=== PATIENT | female | born 1970 | race Caucasian/White ===

== ENCOUNTER 2023-09-27 22:56 | Inpatient (IN) | payer BC, SELFPAY ==
[2023-09-27 14:41] VITALS: BP 121/69; BMI 20.1
[2023-09-27 15:03] LABS: % Basophils 0.5 % (0-2); % Eosinophils 1.5 % (0-6); % Immature Granulocytes 0.4 % (0-0.5); % Lymphocytes 25.9 % (20.5-51.1); % Neutrophils 59.7 % (42.2-75.2); Absolute Eosinophils 0.1 10^3/uL (0-0.7); Absolute Neutrophils 4.7 10^3/uL (1.4-6.5); Hematocrit 42.7 % (37.0-47.0); Hemoglobin 15.2 g/dL (12.0-16.0); Mean Corp Hgb Conc. 35.6 g/dL (33.0-37.0); Mean Corpuscular Hgb 31.5 pg (27.0-31.0); Mean Corpuscular Volume 88.6 fL (81.0-99.0); Mean Platelet Volume 9.4 fL (7.4-10.4); Nucleated Red Blood Cells % 0 %; Platelet Count 214 10^3/uL (130-400); Red Blood Cell Count 4.82 10^6/uL (4.20-5.40); White Blood Cell Count 7.9 10^3/uL (4.8-10.8)
[2023-09-27 15:16] LABS: ALT (SGPT) 18 U/L (0-35); AST (SGOT) 21 U/L (14-36); Albumin 4.8 g/dl (3.5-5.0); Alkaline Phosphatase 80 U/L (38-126); Blood Urea Nitrogen 17 mg/dl (7-17); Calcium 10.1 mg/dl (8.4-10.2); Carbon Dioxide 22 mmol/L (22-30); Chloride 107 mmol/L (98-107); Estimated Creatinine Clearance 76 ml/min; Glucose 72 mg/dl (70-99); Potassium 3.9 mmol/L (3.5-5.1); Sodium 138 mmol/L (135-145); Total Bilirubin 0.9 mg/dl (0.2-1.3); Total Protein 7.9 g/dl (6.3-8.2); Urine Albumin Negative (Neg - Trace); Urine Bilirubin Negative (Negative); Urine Character Clear (Clear); Urine Color Yellow; Urine Glucose Negative (Negative); Urine Ketone 3+ (Negative); Urine Leukocyte Negative (Negative); Urine Nitrite Negative (Negative); Urine Occult Blood Negative (Negative); Urine Specific Gravity 1.015 (<1.030); Urine Urobilinogen Negative (Neg - 1+); eGFR > 60.00
[2023-09-27 17:58] VITALS: BP 123/64
[2023-09-27] MEDS: REGLAN 10 MG IV (18:56)
[2023-09-27] MEDS: TORADOL 30 MG IV (18:56)
[2023-09-27] MEDS: NSS 1000 IV (18:57)
[2023-09-27 19:34] VITALS: BP 121/74
[2023-09-27 20:43] VITALS: BP 123/72
[2023-09-27 21:04] LABS: Erythrocyte Sed Rate 5 mm/hour (0-20)
[2023-09-27] MEDS: SOLU-MEDROL 258 MG IV (21:15)
--- NOTE | 2023-09-27 21:21 | ED.GENMED ---
History of Present Illness
General
Chief Complaint: Fall
Source: patient and family
Exam Limitations: none
Time Seen by Provider: 09/27/23 18:04
Nursing documentation reviewed up to this point in time: agreed with
Travel History
Have you had any contact with someone who has COVID-19?: No
Do you have any symptoms of coronavirus? Fever > 100 degrees, chills, cough, shortness of breath, sore throat, loss of taste or smell, muscle aches, or headache?: No
History of Present Illness
History of Present Illness:
52-year-old female with past history of anxiety, multiple sclerosis follows with neurology for this presenting today with concerns of multiple weeks of worsening ataxia discomfort to her right lower extremity mild headaches and vision changes that
is very typica of her MS l. She has been taking her chronic medications glatiramer. She was treated with outpatient steroids last week with visit today she has had difficulty ambulating secondary to significant ataxia.
Review of Systems
Review of Systems
Allergies reviewed?: Yes
All Other Systems: ROS reviewed and negative except as documented in HPI and ROS
Phy Exam
Physical Exam
Physical Exam:
GENERAL: Alert , in no apparent distress
EYE: pupils equal and reactive
NECK: Supple, no significant adenopathy.
ENT: o/p clr, mmm.
CARDIAC: Regular rate and rhythm .
LUNGS: Clear breath sounds bilaterally, no acute respiratory distress, no wheezes/rales/rhonchi
ABDOMEN: Soft, without focal tenderness, no r/g, no cvat
NEUROLOGICAL: Alert and oriented, no focal neuro deficits 5 out of 5 upper and lower sensation were palpated bilaterally normal finger-nose and [id number].
Patient was stood up to walk she had a somewhat staggering gait
SKIN: Warm and dry, skin intact.
MUSCULOSKELETAL: No edema, well perfused.
PSYCH: Normal and appropriate interaction.
Course
Orders/Labs/Results
Orders:
Orders
09/27/23 14:56
C-Reactive Protein Urgent
Comment: ADD ON
Complete Blood Count/With Diff Urgent
Comprehensive Metabolic Panel Urgent
Erythrocyte Sed Rate Urgent
Comment: ADD ON
Urinalysis Reflex To Culture Urgent
Date Specimen was Collected: 09/27/23
Time Specimen was Collected: 14:46
09/27/23 18:07
EKG [Electrocardiogram (*1)] Urgent
Reason for Study: Vertigo / Dizzy
EKG- Treatment ONCE
09/27/23 18:33
CT Cervical Spine W/o Iv Contr Urgent
Comment:
Reason For Exam: neck pain left arm numkbness
CT Head W/o Iv Contrast Urgent
Comment:
Reason For Exam: fall hit head
09/27/23 18:34
Ketorolac [Toradol] 30 mg IV NOW STA
Metoclopramide [Reglan] 10 mg IV NOW STA
09/27/23 18:35
0.9% Sodium Chloride 1000 ml [Nss] 1,000 ml IV BOLUS
09/27/23 20:27
Add On- LAB Urgent
Tests Added?: esr, crp
09/27/23 20:50
MethylPREDNISolone. [Solu-Medrol] 1,000 mg 0.9% Sodium Chloride 250 ml [Nss] 250 ml IV NOW
Abnormal Lab Results
09/27/23
14:56
MCH 31.5 H pg
(27.0-31.0)
Absolute Monos (auto) 1.0 H 10^3/uL
(0.1-0.6)
Monocytes % 12.0 H %
(1.7-9.3)
Urine Ketones 3+ A
(Negative)
09/27/23 14:56
09/27/23 14:56
Vital Signs
Initial and Last Documented VS:
Initial Vital Signs
Temp Pulse Resp BP Pulse Ox
98.2 F 85 16 121/69 98
09/27/23 14:41 09/27/23 14:41 09/27/23 14:41 09/27/23 14:41 09/27/23 14:41
Last Documented Vital Signs
Temp Pulse Resp BP Pulse Ox
98.2 F 78 18 123/72 99
09/27/23 14:41 09/27/23 20:43 09/27/23 20:43 09/27/23 20:43 09/27/23 20:43
MDM/Problems Addressed
MDM/Problems Addressed:
52-year-old male with a multiple symptoms that she feels is distant with her MS and uses a flare. Outpatient steroids with no relief. Here she had initial vital signs normal in no distress when trying to ambulate she did have some ataxia but
otherwise no specific focal findings. She had some degree of headache was given Reglan with improvement. Given fluids. Did have a fall where she think she may have hit her head and does have some discomfort to her neck CT scan of the head and
neck were performed with no emergent findings. Case discussed with neurology recommending IV steroids and admission for further monitoring. Stable throughout ER stay.
*Critical Care Note
Total Time (30-74mins, 75-104mins- exclusive of procedures): Not Applicable
ED Attending Note
-
Portions of this chart may have been created with voice recognition software.� Occasional wrong word or��sound alike� substitutions may have occurred due to the inherent limitations of voice recognition software.
Discharge Plan
Departure
Patient Disposition: Admit
Date of Disposition: 09/27/23
Time of Disposition: 21:26
Admit to: Med/Surg
Admit to doctor: roseline
Presentation/result/management discussed w/ accepting MD/DO: Hospitalist
Patient with high blood pressure during this ER visit?: No
Condition: Good
Covid-19: Not Applicable
Discharge Problem:
Multiple sclerosis exacerbation
Prescriptions:
No Action
topiramate [Topamax] 100 mg Tablet
150 mg PO BID
glatiramer [Copaxone] 40 mg/mL Syringe
40 mg SC ONCE
Rx Instructions:
takes 3 times a week, had last dose .
diazepam [Valium] 10 mg Tablet
10 mg PO BID PRN (Reason: an)
zolpidem [Ambien] 10 mg Tablet
10 mg PO HS
Referrals:
Stanislav Nino MD [Family Provider] -
Interventions
Interventions:
*Risk Screen - Suicide Last Done: 09/27/23 14:41
*General Assessment Last Done: 09/27/23 17:57
*Neglect/Abuse Screening Last Done: 09/27/23 14:41
ED- Fall Risk Assessment Last Done: 09/27/23 17:59
*ED COVID-19 Vaccine History Last Done: 09/27/23 14:41
ED- Neurological Assessment Last Done: 09/27/23 17:59
ED-Skin Assessment Last Done: 09/27/23 17:59
--- NOTE | 2023-09-27 22:16 | HPS.HSE ---
Family Physician
-
Family Physician: Stanislav Nino
Chief Complaint
-
Weakness, Ataxia
History of Present Illness
Patient is a 52y F with PMH significant for multiple sclerosis who presents to ED complaining of weakness, ataxia, vision changes, etc for the past 2-3 weeks. Patient initially developed R vision changes and paresthesias. Her symptoms have
since progressed to include headache, ataxia and LE weakness. She had a fall yesterday onto her L side when she got out of bed and her legs gave out. Patient states that she spoke with her Neurologist at [place]. Initially she increased her fluid
intake and rest - without improvement in her symptoms.
She was then seen by her PCP and was prescribed PO methylprednisolone 3 tabs daily (? dose). She noted some improvement in her weakness and ataxia; however, she also developed bladder pain and spasms.
She was diagnosed with UTI, steroids were stopped and she was started on Macrobid.
Since that time, her MS symptoms have again increased / recurred.
Medical History
Past Medical History
Past Medical History: Reports Other
Additional Past Medical History:
Multiple Sclerosis
Migraine Headaches
Anxiety / Insomnia
Past Surgical History: Reports Other
Additional Past Surgical History:
x 3
KAYLEY
Cholecystectomy
Bilateral Breast Reduction
Abdominoplasty
Social History
Tobacco: Non-smoker
Alcohol: Occasional
Drug: None
Family History
Family History: Not pertinent
Allergies / Home Medications
Allergies reflects when Allergies were last updated in [facility].
Home Medications with original date entered in [facility]
Allergy/Medication List:
Allergies
Allergy/AdvReac Type Severity Reaction Status Date / Time
Penicillins Allergy Rash Verified 09/27/23 14:38
Home Medications
diazepam 10 mg tablet (Valium) 10 mg PO BID PRN an 09/27/23
glatiramer 40 mg/mL subcutaneous syringe (Copaxone) 40 mg SC ONCE 09/27/23
topiramate 100 mg tablet (Topamax) 150 mg PO BID 09/27/23
zolpidem 10 mg tablet (Ambien) 10 mg PO HS 09/27/23
Review of Systems
-
History Source: Patient
A 12 point ROS was completed and negative except as noted: Yes
Constitutional: Reports Fatigue; Denies Fever or Chills
EENT: Reports Other (Vision changes); Denies Sore Throat
Respiratory: Denies Cough or Trouble Breathing
Cardiac: Denies Chest Pain or Palpitations
Abdomen/GI: Reports Nausea; Denies Abdominal Pain, Vomiting or Diarrhea
: Reports Dysuria, Urgency and Other (Bladder pressure / spasms.); Denies Frequency or Flank Pain
Musculoskeletal: Reports Joint Pain (L shoulder / knee.); Denies Edema
Neurological: Reports Headache, Weakness and Numbness; Denies Dizzy
Psych: Reports Anxiety; Denies Depression
Physical Exam
Vital Signs
Vital Signs
Temp Pulse Resp BP Pulse Ox
98.2 F 78 18 123/72 99
09/27/23 14:41 09/27/23 20:43 09/27/23 20:43 09/27/23 20:43 09/27/23 20:43
Physical Exam
General: Other (52y F in no acute distress.)
HEENT: Moist mucous membranes and PERRLA
Respiratory: Clear; No Wheezes, Rales or Rhonchi
Cardiac: S1/S2 and Regular Rhythm; No Murmur
GI: Soft, Non Tender, Non Distended and Normal Bowel Sounds
Musculoskeletal: No Clubbing, No Cyanosis and No Edema
Neuro: AO x 3 and Other (Mild weakness appreciated in the LLE compared to the R. Pos ataxia / unsteady gait.)
Laboratory Results
-
09/27/23 14:56
02/10/24 14:56
Laboratory Results
Total Bilirubin 0.9 mg/dl (0.2-1.3) 09/27/23 14:56
AST 21 U/L (14-36) 09/27/23 14:56
ALT 18 U/L (0-35) 09/27/23 14:56
Alkaline Phosphatase 80 U/L (38-126) 09/27/23 14:56
Impression/Plan
-
A/P: Patient is a 52y F with PMH significant for MS who presents to ED complaining of 3 weeks of worsening symptoms.
MS Flare
- Admit for further evaluation and treatment.
- Failed supportive care and outpatient course of PO steroids.
- High-dose SoluMedrol at 1000mg daily for now.
- Follow for improvement in symptoms.
- Patient states that - in the past - she has received 3 days of such treatment as the usual 5 days was 'too much'.
- Continue usual outpatient med regimen including Copaxone.
- Neurology evaluation.
- PT / OT evaluations.
- Follow for any new / worsening symptoms.
Migraine Headaches
- Continue Topamax for headaches.
DVT Prophylaxis: Subcut Lovenox
Code Status: Full
[2023-09-27] MEDS: TOPAMAX 150 MG PO (23:26)
[2023-09-27] MEDS: AMBIEN 5 MG PO (23:26)
[2023-09-27 23:30] VITALS: BP 99/58; BMI 20.8
[2023-09-28 00:38] LABS: TSH Reflex To Free T4 0.72 uIU/ml (0.47-4.68)
[2023-09-28 07:09] LABS: Hematocrit 40.1 % (37.0-47.0); Hemoglobin 13.9 g/dL (12.0-16.0); Mean Corp Hgb Conc. 34.7 g/dL (33.0-37.0); Mean Corpuscular Hgb 30.8 pg (27.0-31.0); Mean Corpuscular Volume 88.7 fL (81.0-99.0); Mean Platelet Volume 9.9 fL (7.4-10.4); Platelet Count 202 10^3/uL (130-400); Red Blood Cell Count 4.52 10^6/uL (4.20-5.40); Red Cell Dist. Width 12.7 % (11.5-14.5); White Blood Cell Count 3.6 10^3/uL (4.8-10.8)
[2023-09-28 07:36] LABS: Blood Urea Nitrogen 17 mg/dl (7-17); Calcium 9.6 mg/dl (8.4-10.2); Carbon Dioxide 16 mmol/L (22-30); Chloride 111 mmol/L (98-107); Estimated Creatinine Clearance 79 ml/min; Glucose 126 mg/dl (70-99); Potassium 4.1 mmol/L (3.5-5.1); Sodium 138 mmol/L (135-145); eGFR > 60.00
[2023-09-28 07:40] VITALS: BP 99/64
[2023-09-28] MEDS: TOPAMAX 150 MG PO ×2 (08:01→20:25)
[2023-09-28] MEDS: PROTONIX IV 40 MG IV (08:01)
[2023-09-28] MEDS: NSS (PRESERVATIVE FREE) 10 ML IV (08:06)
--- NOTE | 2023-09-28 11:42 | W.PN.HOSP.TC ---
Today's Communication/Plan
-
Check urinalysis
Assessment / Plan
Assessment / Plan
Gen-AAOx3, NAD
HEENT-NC, AT, anicteric, clear oral mm
Neck-supple
CV-reg, no M, +S1/S2
Lungs-clear B/L
Abd-soft, NT, ND
Ext-no edema
Musculoskeletal-no cyanosis, clubbing
Skin-warm and dry
Neuro-grossly non-focal
Psych-calm, cooperative
Multiple sclerosis flare -continue IV Solu-Medrol. Consult neurology.
Dysuria -patient claims it is from the steroids. Check urinalysis again today. Recently treated with Macrobid.
Migraine headaches -continue Topamax.
Full code
Anticipated Discharge: 24 - 48 hours
Subjective/Interval History
-
Date of Service: September 28, 2023
Patient seen and examined. States her strength is improved. Having urinary symptoms however.
Objective Data
-
Labs:
Laboratory Results
09/28/23
06:20
WBC 3.6 L
Hgb 13.9
Hct 40.1
Plt Count 202
Sodium 138
Potassium 4.1
Chloride 111 H
Carbon Dioxide 16 L
BUN 17
Creatinine 0.8
Glucose 126 H
Calcium 9.6
Vital Signs:
Vital Signs
Temp Pulse Resp BP Pulse Ox
97.6 F 73 14 99/64 98
09/28/23 07:40 09/28/23 07:40 09/28/23 07:40 09/28/23 07:40 09/28/23 07:40
I&O
09/27/23 09/28/23 09/29/23
06:59 06:59 06:59
Intake Total 480 / 480
Balance 480 / 480
Review of Systems
-
History Source: Patient
All other systems: Reviewed and negative
[2023-09-28 12:32] LABS: Urine Albumin 3+ (Neg - Trace); Urine Bilirubin 1+ (Negative); Urine Character Clear (Clear); Urine Color Yellow; Urine Glucose Trace (Negative); Urine Ketone 3+ (Negative); Urine Leukocyte Negative (Negative); Urine Nitrite Negative (Negative); Urine Occult Blood Trace (Negative); Urine Specific Gravity 1.025 (<1.030); Urine Urobilinogen Negative (Neg - 1+)
--- NOTE | 2023-09-28 12:34 | CON.NEURO4 ---
Consultation - Neurology 4
-
CONSULTING PHYSICIAN: Ruby
REFERRING PHYSICIAN: ER
DICTATED BY: Ruby
DATE/TIME OF REQUEST: 09/27/23 in the evening
DATE/TIME OF CONSULTATION: 09/28/23 12pm
Reason for Consultation: ms exacerbation
History of Present Illness:
52-year-old female with a history of MS that she states was diagnosed about 12 years ago after onset of vision loss in her right eye/optic neuritis who actively follows with the [facility] came in for evaluation for gait ataxia. She also has a
history of anxiety. She states that for the past few weeks she has had gait ataxia and she called her PCP who prescribed her oral steroids. This did not seem to be helpful and on Friday she 'got up, fell to the side and hurt her shoulder and arm
on the left, her legs felt wobbly and she felt like she was on a boat.' She was instructed to go to the nearest ER. She currently takes Copaxone. This is the only MS drugs she is ever taken and she denies any missed doses. She also has a history
of neurogenic bladder and states that steroids sometimes seem to cause pain/burning with urination. She follows with Dr. Anthony Link, urologist in [place]. She states that at baseline she has 'an intermittent black spot in the vision in her right
eye and pain with movement of her right eye' as a result of MS. She said she had a 4-day virus around [place] and has never 'felt the same since then.' She says that her last MS flare was 5 or 6 years ago. She says that she has MS lesions in
her brain but not her spinal cord.
Past Medical History:
Multiple Sclerosis
Migraine Headaches
Anxiety / Insomnia
Surgical History:
x 3
KAYLEY
Cholecystectomy
Bilateral Breast Reduction
Abdominoplasty
Family History: no family history of MS, reports strong family history of breast cancer
Social History:
Tobacco: Non-smoker
Alcohol: Occasional
Drug: None
Disabled due to MS
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
Allergies
Penicillins Allergy (Verified 09/27/23 14:38)
Rash
Home Medications
Medication Instructions Recorded
diazepam 10 mg tablet (Valium) 10 mg PO BID PRN ANXIETY 09/27/23
glatiramer 40 mg/mL subcutaneous 40 mg SC ONCE Neurological 09/27/23
syringe (Copaxone) Condition
topiramate 100 mg tablet (Topamax) 150 mg PO BID Neurological 09/27/23
Condition
zolpidem 10 mg tablet (Ambien) 10 mg PO HS Sleep 09/27/23
Review of Symptoms:
Patient denies any fever, headache, chest pain, shortness of breath, GI ymptoms.
�Per the HPI.�All systems are reviewed negative except above.
Vital Signs
Temp Pulse Resp BP Pulse Ox
97.6 F 73 14 99/64 98
09/28/23 07:40 09/28/23 07:40 09/28/23 07:40 09/28/23 07:40 09/28/23 07:40
Lab Results
09/28/23 06:20
09/28/23 06:20
Sodium 138 mmol/L (135-145) 09/28/23 06:20
Potassium 4.1 mmol/L (3.5-5.1) 09/28/23 06:20
BUN 17 mg/dl (7-17) 09/28/23 06:20
Glucose 126 mg/dl (70-99) H 09/28/23 06:20
Calcium 9.6 mg/dl (8.4-10.2) 09/28/23 06:20
Physical Exam:
The patient is afebrile, heart sounds S1 and S2 are regular, and chest is clear to auscultation bilaterally.
Neurologic Examination:
The patient is awake, alert and oriented x 3. She s able to follow commands and answer questions appropriately. There is no aphasia or dysarthria. On cranial nerve assessment, pupils are 3 mm bilateral, round and reactive to light and
accommodation. Visual dias are full. Extraocular movements are intact. Facial sensations are intact and bilaterally symmetrical, there is no facial asymmetry. Hearing is intact bilaterally to normal conversation volume. Tongue palate and uvula
are midline. Sternocleidomastoid strengths are full bilaterally. Motor strengths are 5-/5 bilateral lower extremities and 5/5 in BUE on medical research [place] scale. Deep tendon reflexes are 2+ bilateral upper and lower extremities and Babinski is
absent bilaterally. Sensations of temperature are diminished in R face and RLE. Otherwise intact. There was no extinction noted on double simultaneous stimulation. Coordination is intact by finger to nose bilaterally.
Neuro Imaging:
MRI Cspine:
No evidence of acute osseous injury of the cervical spine.
Multilevel lower lumbar spine degenerative disc disease as described above.
Straightening of the normal cervical spine lordosis. This can be seen with muscular spasm.
HCT:
The ventricles are normal in size, configuration, and position.� Brain parenchyma is normal attenuation.� There is no intra- or extra-axial mass, hemorrhage, or fluid collection.� There is no midline shift nor mass effect.� No fractures are noted�
Visualized paranasal sinuses are free of mucosal disease.
IMPRESSION:
No acute intracranial abnormality noted.
Impression:
ERIKA EDWARDS is a 52 year old F who has presented to the hospital with gait ataxia concerning for an MS exacerbation. This could also be a pseudoexacerbation induced by infection; there could also be a component of anxiety affecting her symptoms.
Recommendations:
1. IVSM 1g IV x total of three days
2. get records from [facility], urologist Dr. Link in [place]
3. MRI brain w/wo contrast to evaluate for any enhancement/new lesions
4. neurochecks
5. check UA again, monitor for infection
Would benefit from outpatient evaluation for possible interstitial cystitis.
Discussed patient care with: patient, patient's , Dr. Quna, ER
[2023-09-28 12:50] LABS: Urine Bacteria Few (Negative); Urine Mucus Few; Urine White Cell 0-2 /HPF (0-5)
--- NOTE | 2023-09-28 14:36 | CM ---
Patient seen at bedside. Patient states that she lives with her and 2 children and has has exacerbation of stress and MS in last month. Patient indicated they live in 2 story home with a nebulizer as her only DME only. Patient PCP is
Ever Wilson in [facility]. Patient does not anticipate any discharge planning needs at this time. CM will continue to follow for discharge planning needs.
Plan; home with no needs anticipated.
[2023-09-28 15:20] VITALS: BP 104/64
[2023-09-28] MEDS: SOLU-MEDROL 258 MG IV (21:38)
[2023-09-28] MEDS: AMBIEN 5 MG PO (21:40)
[2023-09-28 23:35] VITALS: BP 101/61
[2023-09-29 07:30] VITALS: BP 92/66
[2023-09-29] MEDS: NSS (PRESERVATIVE FREE) 10 ML IV (08:05)
[2023-09-29] MEDS: PROTONIX IV 40 MG IV (08:05)
[2023-09-29] MEDS: TOPAMAX 150 MG PO ×2 (08:05→20:25)
--- NOTE | 2023-09-29 08:17 | W.PN.NEURO.1 ---
Today's Communication / Plan
-
.
Neuro Assessment/Plan
Assessment
This is a 52-year-old female with a history of MS that she states was diagnosed about 12 years ago after onset of vision loss in her right eye/optic neuritis who actively follows with the [place] [facility], who presented to on 09/27/23 with report of
gait ataxia concerning for MS exacerbation.
ER VS: 98.2 F, HR 85, BP 121/69, RR 16, 98% RA
CT Head 09/27/23: No acute intracranial abnormality noted.
CT Cervical spine 09/27/23: No evidence of acute osseous injury of the cervical spine. Multilevel lower lumbar spine degenerative disc disease.
SH: Lives with and children. 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 She reports significant home life stressors.
I. Multiple sclerosis on Copaxone. Concern for MS flare.
II. Neurogenic bladder, UTI symptoms. Possible pseudo exacerbation of MS symptoms.
III. Migraine headache.
IV. Anxiety.
Plan
-Methylprednisone 1000mg IV daily x3 days total. Tonight (09/29/23) at 1800 is her last dose. Patient refuses any more than 3 days of steroids due to an adverse reaction in the past.
-MRI brain w/wo contrast to evaluate for any enhancement/new lesions.
-Continue home Copaxone. Patient is considering changing MS treatments.
-Continue home Topamax 150mg BID for migraine prevention. PRN Tylenol for headache.
-Infection workup/treatment per Hospitalists service.
-PT/OT evaluations.
-DVT prophylaxis.
-Would benefit from outpatient evaluation for possible interstitial cystitis.
-Will follow pending results. Patient would like to follow-up with Neurology Dr. Beltran as an outpatient to have a local neurologist. May see the TIME STUDY CLERK Matilde Licona or Dr. Beltran in 4-6 weeks. Should also follow-up with her Neurologist at [place].
Subjective/Objective
Subjective Data
Date of Service: September 29, 2023
No acute events overnight. Patient reports that her strength and walking feels improved today. She reports some dysuria, ongoing left shoulder discomfort with some tingling from her left forearm up to her left shoulder. She endorses a mild
right-sided headache and worsening of her chronic 'king cloud' in her right eye vision. She attributes her headache to lack of sleep. She denies any dizziness, speech/swallow difficulty, nausea, photo/phonophobia, chest pain, palpitations, and
shortness of breath.
Objective Data
Vital Signs
Temp Pulse Resp BP Pulse Ox
98 F 75 18 101/61 94
09/28/23 23:35 09/28/23 23:35 09/28/23 23:35 09/28/23 23:35 09/28/23 23:35
Lab Results
09/28/23 06:20
09/28/23 06:20
Sodium 138 mmol/L (135-145) 09/28/23 06:20
Potassium 4.1 mmol/L (3.5-5.1) 09/28/23 06:20
BUN 17 mg/dl (7-17) 09/28/23 06:20
Glucose 126 mg/dl (70-99) H 09/28/23 06:20
Calcium 9.6 mg/dl (8.4-10.2) 09/28/23 06:20
Patient Allergies
Penicillins Allergy (Verified 09/27/23 14:38)
Rash
Review of Systems
-
History Source: Patient
EENT: Eye Pain (Reports right eye pressure/strain with EOMs) and Decreased Vision (Right eye with king cloud in vision)
Respiratory: Negative Cough or Trouble Breathing
Cardiac: Negative Chest Pain or Palpitations
Abdomen/GI: Negative Nausea or Vomiting
Genitourinary: Dysuria
Neuro: Headache, Weakness and Numbness; Negative Dizzy, Ataxia, Tremors or Speech Problem
Physical Exam
-
General: No Apparent Distress
Eyes: No Ptosis and PERRLA
HEENT: Normocephalic and Atraumatic
Respiratory: No Dyspnea
GI: Non-distended
Extremities: No Clubbing, No Cyanosis and No Edema
Psych: Unremarkable
Extended Neurological Exam
Mood & Affect: Mood Unremarkable and Affect Unremarkable
Attention Span & Concentration: Awake, Alert and Interactive
Memory: Unremarkable (AAOx3) and Able to Recall
Tremor: Hand Tremor Absent and Head Tremor Absent
Involuntary Movement: None
Speech: Quality Unremarkable, Quantity Unremarkable and Rate of Production Unremarkable
Cranial Nerve II: Left Eye: Pupillary Reactivity Unremarkable, Pupillary Size Unremarkable and Visual Raygoza Intact
Cranial Nerve II: Right Eye: Pupillary Reactivity Unremarkable, Pupillary Size Unremarkable and Visual Raygoza Intact
Cranial Nerves III, IV, : Extraocular Movement: Extraocular Movement Full in all Directions
Cranial Nerve V: Facial Sensation: Intact to Light Touch
Cranial Nerve VII: Facial Symmetry: Normal Facial Symmetry
Cranial Nerve VIII: Hearing: Unremarkable Hearing to Normal Conversational Volume
Cranial Nerves IX, X: Palate Movement: Palate Elevation Symmetric
Cranial Nerve XI: Shoulder Shrug: Unremarkable
Cranial Nerve XII: Tongue Protusion: Midline
Muscle Strength, Overall: Reduced Bilaterally (Bilateral lower extremities 5-/5, Left plantarflexion 4/5)
Muscle Bulk & Tone: Bulk Unremarkable and Tone Unremarkable
Pronator Drift: No Drift in Upper Extremities and No Drift in Lower Extremities
Deep Tendon Reflexes: Unremarkable Throughout
Touch Sensation: Double Simultaneous Stimulation Unremarkable
Coordination: Tzmvrg-[id number]-[id number] Testing Unremarkable
Babinski Sign: Absent Bilaterally
Modified [place] Score (MRS)
-
MRS Score:
Data Reviewed
-
CT Head: Report Reviewed and Image Reviewed
CT Cervical Spine: Report Reviewed and Image Reviewed
Labs: Report Reviewed
Reviewed with: Physician and Patient
--- NOTE | 2023-09-29 08:34 | W.PN.HOSP.TC ---
Today's Communication/Plan
-
Complete steroids today
Assessment / Plan
Assessment / Plan
Physical Exam
Gen-AAOx3, NAD
HEENT-NC, AT, anicteric, clear oral mm
Neck-supple
CV-reg, no M, +S1/S2
Lungs-clear B/L
Abd-soft, NT, ND
Ext-no edema
Musculoskeletal-no cyanosis, clubbing
Skin-warm and dry
Neuro-grossly non-focal
Psych-calm, cooperative
Assessment/Plan
Multiple sclerosis flare - continue IV Solu-Medrol 1000mg IV daily x3 days total: hiro (09/29/23) at 1800 is her last dose (patient refused any more than 3 days of steroids due to an adverse reaction in the past). Consulted neurology,
recommendations appreciated. Continue Copaxone. May see the SOFTWARE PROJECT ENGINEER Matilde Licona or Dr. Beltran in 4-6 weeks and patient should also follow-up with her Neurologist at [place].
Leukocytosis and Dysuria - Possible Interstitial Cystitis. Possible pseudo exacerbation of MS symptoms. patient claims it is from the steroids. UA not too remarkable for UTI. Empiric trial of Macrobid for a couple days as per patient's request.
Neurogenic Bladder
Migraine headaches -continue Topamax.
Anxiety
Full code
Anticipated Discharge: 24 - 48 hours
Subjective/Interval History
-
Date of Service: September 29, 2023
Patient was seen and examined. She reports that she has some burning with urination which she says she gets every time she is on steroids, but she denied any other new complaints.
Objective Data
-
Vital Signs:
Vital Signs
Temp Pulse Resp BP Pulse Ox
98.0 F 73 16 92/66 95
09/29/23 07:30 09/29/23 07:30 09/29/23 07:30 09/29/23 07:30 09/29/23 07:30
I&O
09/28/23 09/29/23 09/30/23
06:59 06:59 06:59
Intake Total 480 / 480 960 / 960
Balance 480 / 480 960 / 960
[2023-09-29 08:58] LABS: Hematocrit 40.9 % (37.0-47.0); Mean Corp Hgb Conc. 34.2 g/dL (33.0-37.0); Mean Corpuscular Hgb 30.8 pg (27.0-31.0); Mean Corpuscular Volume 90.1 fL (81.0-99.0); Mean Platelet Volume 9.7 fL (7.4-10.4); Platelet Count 209 10^3/uL (130-400); Red Blood Cell Count 4.54 10^6/uL (4.20-5.40); White Blood Cell Count 16.3 10^3/uL (4.8-10.8)
[2023-09-29 09:24] LABS: Blood Urea Nitrogen 19 mg/dl (7-17); Calcium 9.9 mg/dl (8.4-10.2); Carbon Dioxide 20 mmol/L (22-30); Chloride 113 mmol/L (98-107); Estimated Creatinine Clearance 79 ml/min; Glucose 167 mg/dl (70-99); Magnesium 2.1 mg/dl (1.6-2.3); Potassium 4.7 mmol/L (3.5-5.1); Sodium 141 mmol/L (135-145); eGFR > 60.00
[2023-09-29] MEDS: MACROBID 100 MG PO ×2 (12:54→20:21)
[2023-09-29] MEDS: SOLU-MEDROL 258 MG IV (12:55)
[2023-09-29 13:55] LABS: Ferritin 99.9 ng/ml (11.1-264.0)
[2023-09-29 14:27] LABS: Folate 11.5 ng/ml (2.76-20); Vitamin B12 > 1000 pg/ml (239-931)
[2023-09-29 16:21] VITALS: BP 95/57
[2023-09-29] MEDS: AMBIEN 5 MG PO (22:11)
[2023-09-29 23:10] VITALS: BP 110/60
[2023-09-30 06:39] LABS: Hematocrit 40.5 % (37.0-47.0); Hemoglobin 14.2 g/dL (12.0-16.0); Mean Corp Hgb Conc. 35.1 g/dL (33.0-37.0); Mean Corpuscular Volume 88.4 fL (81.0-99.0); Mean Platelet Volume 9.9 fL (7.4-10.4); Platelet Count 224 10^3/uL (130-400); Red Blood Cell Count 4.58 10^6/uL (4.20-5.40); Red Cell Dist. Width 13.3 % (11.5-14.5); White Blood Cell Count 22.4 10^3/uL (4.8-10.8)
[2023-09-30 07:00] VITALS: BP 105/66
[2023-09-30 07:31] LABS: Blood Urea Nitrogen 22 mg/dl (7-17); Calcium 10.5 mg/dl (8.4-10.2); Carbon Dioxide 22 mmol/L (22-30); Chloride 108 mmol/L (98-107); Estimated Creatinine Clearance 90 ml/min; Glucose 113 mg/dl (70-99); Potassium 3.9 mmol/L (3.5-5.1); Sodium 142 mmol/L (135-145); eGFR > 60.00
[2023-09-30] MEDS: PROTONIX IV 40 MG IV (08:04)
[2023-09-30] MEDS: NSS (PRESERVATIVE FREE) 10 ML IV (08:04)
[2023-09-30] MEDS: MACROBID 100 MG PO (08:04)
[2023-09-30] MEDS: TOPAMAX 150 MG PO (08:05)
--- NOTE | 2023-09-30 08:42 | W.PN.NEURO.1 ---
Today's Communication / Plan
-
.
Neuro Assessment/Plan
Assessment
This is a 52-year-old female with a history of MS that she states was diagnosed about 12 years ago after onset of vision loss in her right eye/optic neuritis who actively follows with the [facility], who presented to on 09/27/23 with report of
gait ataxia concerning for MS exacerbation.
ER VS: 98.2 F, HR 85, BP 121/69, RR 16, 98% RA
CT Head 09/27/23: No acute intracranial abnormality noted.
CT Cervical spine 09/27/23: No evidence of acute osseous injury of the cervical spine. Multilevel lower lumbar spine degenerative disc disease.
MRI Brain 09/29/23: Mild white matter signal alteration in keeping with demyelination in the setting of multiple sclerosis. No MRI evidence for active demyelination.
SH: Lives with and children. 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 She reports significant home life stressors.
I. Multiple sclerosis on Copaxone. MRI brain negative for active demyelination.
II. Neurogenic bladder, UTI symptoms. Recent viral infection. Possible pseudo exacerbation of MS symptoms.
III. Migraine headache.
IV. Anxiety.
Plan
-Completed day 3/3 of IV methylprednisone on 09/29/23.
-Continue home Copaxone. Patient is considering changing MS treatments as an outpatient.
-Continue home Topamax 150mg BID for migraine prevention. PRN Tylenol for headache.
-Infection workup/treatment per Hospitalists service.
-PT/OT evaluations.
-DVT prophylaxis.
-Would benefit from outpatient evaluation for possible interstitial cystitis.
-Will sign off. Please contact our Neurology service with any questions/concerns. Patient would like to follow-up with Neurology Dr. Beltran as an outpatient to have a local neurologist. May see the MATHEMATICS LECTURER Matilde Licona or Dr. Beltran in 4-6 weeks.
Should also follow-up with her Neurologist at [place].
Subjective/Objective
Subjective Data
Date of Service: September 30, 2023
No acute events overnight. Patient reports feeling improved today. She still has a mild headache/right eye pressure and her chronic intermittent king cloud in her right eye vision. She also endorses ongoing tingling in her RLE. She denies any
dizziness, speech/swallow difficultly, weakness, nausea, chest pain, palpitations, and shortness of breath.
Objective Data
Vital Signs
Temp Pulse Resp BP Pulse Ox
98.1 F 64 18 110/60 97
09/29/23 23:10 09/29/23 23:10 09/29/23 23:10 09/29/23 23:10 09/29/23 23:10
Lab Results
09/30/23 06:25
09/30/23 06:25
Sodium 142 mmol/L (135-145) 09/30/23 06:25
Potassium 3.9 mmol/L (3.5-5.1) 09/30/23 06:25
BUN 22 mg/dl (7-17) H 09/30/23 06:25
Glucose 113 mg/dl (70-99) H 09/30/23 06:25
Calcium 10.5 mg/dl (8.4-10.2) H 09/30/23 06:25
Vitamin B12 > 1000 pg/ml (239-931) H 09/29/23 08:46
Patient Allergies
Penicillins Allergy (Verified 09/27/23 14:38)
Rash
Physical Exam
-
General: Well Developed, Well Nourished and No Apparent Distress
Eyes: No Ptosis and PERRLA
HEENT: Normocephalic and Atraumatic
Neck: Full Range of Motion
Respiratory: No Dyspnea
GI: Non-distended
Extremities: No Clubbing, No Cyanosis and No Edema
Psych: Unremarkable
Extended Neurological Exam
Mood & Affect: Mood Unremarkable and Affect Unremarkable
Attention Span & Concentration: Awake, Alert and Interactive
Memory: Unremarkable (AAOx3) and Able to Recall
Tremor: Hand Tremor Absent and Head Tremor Absent
Involuntary Movement: None
Speech: Quality Unremarkable, Quantity Unremarkable and Rate of Production Unremarkable
Cranial Nerve II: Left Eye: Pupillary Reactivity Unremarkable, Pupillary Size Unremarkable and Visual Raygoza Intact
Cranial Nerve II: Right Eye: Pupillary Reactivity Unremarkable, Pupillary Size Unremarkable and Visual Raygoza Intact
Cranial Nerves III, IV, : Extraocular Movement: Extraocular Movement Full in all Directions
Cranial Nerve V: Facial Sensation: Intact to Light Touch
Cranial Nerve VII: Facial Symmetry: Normal Facial Symmetry
Cranial Nerve VIII: Hearing: Unremarkable Hearing to Normal Conversational Volume
Cranial Nerves IX, X: Palate Movement: Palate Elevation Symmetric
Cranial Nerve XI: Shoulder Shrug: Unremarkable
Cranial Nerve XII: Tongue Protusion: Midline
Muscle Strength, Overall: Other (BUE 5/5, BLE 5-/5, R and L plantar/dorsiflexion 5/5)
Muscle Bulk & Tone: Bulk Unremarkable and Tone Unremarkable
Pronator Drift: No Drift in Upper Extremities and No Drift in Lower Extremities
Deep Tendon Reflexes: Unremarkable Throughout
Cold Sensation: Other (Reduced mildly in distal RLE)
Vibration Sensation: Other (Reduced mildly in distal RLE)
Touch Sensation: Double Simultaneous Stimulation Unremarkable and Other (touch reduced mildly in RLE)
Coordination: [id number] Testing Unremarkable
Babinski Sign: Absent Bilaterally
Gait & Station: Up from Seated Without Problem
Data Reviewed
-
MRI Head: Report Reviewed and Image Reviewed
Labs: Report Reviewed
Reviewed with: Physician and Patient
Medications
-
Active Medications
Generic Name Dose Route Start Last Admin
Trade Name Freq PRN Reason Stop Dose Admin
Acetaminophen 650 mg 09/27/23 23:19
Acetaminophen 325 Mg Tablet PO 10/25/23 23:18
Q4HPRN PRN
Mild Pain / Temp > 101
Diazepam 5 mg 02/12/24 11:41
Diazepam 5 Mg Tablet PO 10/25/23 23:30
BID PRN
muscle spasms, anxiety
Enoxaparin Sodium 40 mg 09/28/23 18:00 09/29/23 16:17
Enoxaparin Sodium 40 Mg/0.4 Ml Syringe SC 10/26/23 17:59 Not Given
QPM YAMILET
Methylprednisolone Sodium 258 mls @ 258 mls/hr 09/29/23 12:00 09/29/23 12:55
Succinate 1,000 mg/ Sodium IV 09/30/23 11:59 258 mls
Chloride Q24H YAMILET Administration
Nitrofurantoin Macrocrystals 100 mg 09/29/23 12:00 09/30/23 08:04
Nitrofurantoin Monohydrate 100 Mg Capsule PO 100 mg
BID YAMILET Administration
Non-Formulary Medication 40 mg 09/29/23 22:10
Glatiramer [Copaxone] SC 10/27/23 22:09
MOWEFR YAMILET
Pantoprazole Sodium 40 mg 09/28/23 08:00 09/30/23 08:04
Pantoprazole Sodium 40 Mg/10 Ml Vial IV 10/26/23 07:59 40 mg
DAILY YAMILET Administration
Sodium Chloride 0 flush 09/27/23 23:00
Sodium Chloride 0.9% (Flush) Syringe IV 10/25/23 22:59
PER PROTOCOL YAMILET
Sodium Chloride 10 ml 09/28/23 08:00 09/30/23 08:04
Sodium Chloride 0.9% (Preservative Free) 10 Ml Vial IV 10/26/23 07:59 10 ml
DAILY YAMILET Administration
Topiramate 150 mg 09/28/23 08:00 09/30/23 08:05
Topiramate 100 Mg Tablet PO 10/26/23 07:59 150 mg
BID YAMILET Administration
Zolpidem Tartrate 5 mg 09/29/23 22:00 09/29/23 22:11
Zolpidem Tartrate 5 Mg Tablet PO 10/27/23 21:59 5 mg
HS PRN Administration
Insomnia
Home Medications
Medication Instructions Recorded
glatiramer 40 mg/mL subcutaneous 40 mg SC ONCE Neurological 09/27/23
syringe (Copaxone) Condition
topiramate 100 mg tablet (Topamax) 150 mg PO BID Neurological 09/27/23
Condition
zolpidem 10 mg tablet (Ambien) 10 mg PO HS Sleep 09/27/23
diazepam 5 mg tablet 5 mg PO BID PRN multiple sclerosis 09/29/23
symptoms
methenamine 81.6 mg-sod phos 40.8 1 tab PO QID PRN urinary tract 09/29/23
mg-methylene blue 0.12mg-hyos symptoms
tablet
nitrofurantoin 100 mg PO BID PRN urinary tract 09/29/23
monohydrate/macrocrystals 100 mg symptoms
capsule
[2023-09-30 11:30] VITALS: BP 101/60; PULSE 63; O2SAT 99
--- NOTE | 2023-09-30 13:17 | W.PN.HOSP.TC ---
Today's Communication/Plan
-
Discharge today
Assessment / Plan
Assessment / Plan
Physical Exam
Gen-AAOx3, NAD
HEENT-NC, AT, anicteric, clear oral mm
Neck-supple
CV-reg, no M, +S1/S2
Lungs-clear B/L
Abd-soft, NT, ND
Ext-no edema
Musculoskeletal-no cyanosis
Skin-warm and dry
Neuro-grossly non-focal throughout
Psych-calm, cooperative
Assessment/Plan
Multiple sclerosis flare - continue IV Solu-Medrol 1000mg IV daily x3 days total: 09/29/23 at 1800 was her last dose (patient refused any more than 3 days of steroids due to an adverse reaction in the past). Consulted neurology, recommendations
appreciated. Continue Copaxone. May see the BARRER AND TACKER Matilde Licona or Dr. Beltran in 4-6 weeks and patient should also follow-up with her Neurologist at [place].
Leukocytosis and Dysuria - Possible Interstitial Cystitis. Possible pseudo exacerbation of MS symptoms. patient claims it is from the steroids. UA not too remarkable for UTI. Empiric trial of Macrobid for a couple days as per patient's request.
--Patient should recheck CBC and BMP outpatient within 2-3 days
Neurogenic Bladder
Migraine headaches -continue Topamax 150mg BID for migraine prevention and can use PRN Tylenol for headache.
Anxiety
Full code
More than 30 minutes spent in discharge including
Final examination of the patient
Summarizing hospital stay
Instructions for continuing care to all relevant caregivers
Preparation of discharge records, prescriptions, and referral forms
Total time spent (in minutes): 35
Anticipated Discharge: Today
Subjective/Interval History
-
Date of Service: September 30, 2023
Patient was seen and examined. She denied any new symptoms or complaints and is ready to go home.
Objective Data
-
Labs:
Laboratory Results
09/30/23
06:25
WBC 22.4 H
Hgb 14.2
Hct 40.5
Plt Count 224
Sodium 142
Potassium 3.9
Chloride 108 H
Carbon Dioxide 22
BUN 22 H
Creatinine 0.7
Glucose 113 H
Calcium 10.5 H
Vital Signs:
Vital Signs
Temp Pulse Resp BP Pulse Ox
97.6 F 65 16 105/66 98
09/30/23 07:00 09/30/23 07:00 09/30/23 07:00 09/30/23 07:00 09/30/23 07:00
I&O
09/29/23 09/30/23 10/01/23
06:59 06:59 06:59
Intake Total 960 / 960 480 / 480
Balance 960 / 960 480 / 480
[2023-09-30 15:00] VITALS: BP 95/60
--- NOTE | 2023-09-30 16:05 | W.DS.TRANS ---
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
-
Discharge Instructions:
Discharge Diagnosis/Procedures Multiple sclerosis flare
Leukocytosis and Dysuria - Possible Interstitial
Cystitis
Neurogenic Bladder
Migraine headaches
Anxiety
Diet As tolerated
Activity As tolerated
Driving Restrictions Not until seen by your Dr
Blood Work Recheck your Complete Blood Count, Comprehensive
Metabolic panel (with albumin) with your
primary care provider's office in 2 to 3 days,
no later than 10/02/23
Instructions:
Stand-Alone Forms:
Changes to Home Medications: No
Discharge Medications:
DC Medications w/original date entered in too.me
glatiramer 40 mg/mL subcutaneous syringe (Copaxone) 40 mg SC ONCE Neurological Condition 09/27/23
topiramate 100 mg tablet (Topamax) 150 mg PO BID Neurological Condition 09/27/23
zolpidem 10 mg tablet (Ambien) 10 mg PO HS Sleep 09/27/23
diazepam 5 mg tablet 5 mg PO BID PRN multiple sclerosis symptoms 09/29/23
methenamine 81.6 mg-sod phos 40.8 mg-methylene blue 0.12mg-hyos tablet 1 tab PO QID PRN urinary tract symptoms 09/29/23
nitrofurantoin monohydrate/macrocrystals 100 mg capsule 100 mg PO BID PRN urinary tract symptoms #2 caps 09/30/23
Home Medication Changes
Pending Results: No
Total time spent discharging patient (in min): 35
--- NOTE | 2023-09-30 16:30 | PTOTSP ---
PATIENT ABLE TO TOLERATE INCREASED ACTIVITY THIS SESSION AND IS FUNCTIONING INDEPENDENTLY ON LEVEL SURFACES WELL ELEVATIONS. RECOMMEND OUTPATIENT THERAPY FOR CONTINUED GAIT TRAINING IF INDICATED. WILL DISCHARGE FROM [facility] AT
THIS TIME.
--- NOTE | 2023-10-03 10:12 | W.DCSUMMARY ---
Discharge Summary
Discharge Data
Date of Admission: 09/27/23
Date of Discharge: 09/30/23
Total time spent discharging patient (in min): 35
-
Pending Results: No
Hospital Course
52 y/o female with a past medical history of Multiple Sclerosis, who presented with weakness, ataxia, and vision changes for the prior 2-3 weeks. Patient had initially developed right-sided vision changes and paresthesias. Then she had headache,
ataxia and lower extremity weakness. She had a fall, the day before presentation, onto her left side when she got out of bed and her legs gave out. Patient states that she spoke with her Neurologist at [facility]. Initially she increased her fluid intake
and rest - without improvement in her symptoms. She was then seen by her primary care provider and was prescribed oral methylprednisolone 3 tabs daily (? dose). She noted some improvement in her weakness and ataxia; however, she also developed
bladder pain and spasms. She was diagnosed with urinary tract infection, steroids were stopped and she was started on Macrobid. Patient reported that her dysuria was associated with steroids.
Patient was started on high dose intravenous steroids (Methylprednisone 1000mg IV daily x3 days total), and neurology was consulted. MRI Brain performed on September 29, 2023, as per radiologist's and neurologist's report showed 'Mild white matter
signal alteration in keeping with demyelination in the setting of multiple sclerosis. No MRI evidence for active demyelination.'
Patient was given a small supply of Macrobid per her request and she felt better. She was stable for discharge.
Discharge Plan
-
Patient Disposition: Home (Routine Discharge)
Discharge Diagnosis/Procedures: Multiple sclerosis flare
Leukocytosis and Dysuria - Possible Interstitial Cystitis
Neurogenic Bladder
Migraine headaches
Anxiety
Condition: Fair
Diet: As tolerated
Activity: As tolerated
Driving Restrictions: Not until seen by your Dr
Blood Work: Recheck your Complete Blood Count, Comprehensive Metabolic panel (with albumin) with your primary care provider's office in 2 to 3 days, no later than 10/02/23
Activity Restrictions/Additional Instructions:
Check with your outpatient physicians tomorrow who can prescribe you the Diflucan you mentioned
Referrals:
Stanislav Nino MD [Family Provider] - in two days
Sanna Beltran DO [Active] - in four to six weeks
Prescriptions:
Continued
topiramate [Topamax] 100 mg Tablet
150 mg PO BID
glatiramer [Copaxone] 40 mg/mL Syringe
40 mg SC ONCE
Rx Instructions:
takes 3 times a week, had last dose .
zolpidem [Ambien] 10 mg Tablet
10 mg PO HS
diazepam 5 mg tablet
5 mg PO BID PRN (Reason: multiple sclerosis symptoms)
methen-sod phos-meth blue-hyos 81.6-40.8-0.12 mg tablet
1 tab PO QID PRN (Reason: urinary tract symptoms)
nitrofurantoin monohyd/m-cryst 100 mg capsule
100 mg PO BID PRN (Reason: urinary tract symptoms) Qty: 2 0RF
Discharge Orders:
Discharge Patient (As Directed); Ordered 09/30/23
Ordered By: Forest Lucero
Discharge Date and Time
Discharge Date/Time: 09/30/23 17:28
== END 2023-09-30 17:28 | disposition home or self-care (01) | DRG 60 ==
LOC: 3 WEST ACU 22:56
PROVIDERS: Emergency Medicine; Hospitalist; ADMITTING PHYSICIAN Hospitalist; ATTENDING PHYSICIAN Hospitalist; CONSULT PHYSICIAN Psychiatry & Neurology Neurology; EMERGENCY PHYSICIAN Student in an Organized Health Care Education/Training Program; FAMILY PHYSICIAN Family Medicine
DX: G35 Multiple sclerosis (principal); F41.9 Anxiety disorder, unspecified; N30.10 Interstitial cystitis (chronic) without hematuria; G47.00 Insomnia, unspecified; G43.909 Migraine, unspecified, not intractable, without status migrainosus; N31.9 Neuromuscular dysfunction of bladder, unspecified
CPT/HCPCS: 70450; 70553; 72125; 80048; 80053; 81003; 81015; 82306; 82607; 82728; 82746; 83735; 84443; 85025; 85027; 85652; 86140; 93005; 96361; 96365; 96375; 97116; 97129; 97162; 97166; 99285; A9575